=== PATIENT | female | born 1990 ===

== ENCOUNTER 2020-07-14 09:10 | Outpatient (REF) | payer MEDICAID, SELFPAY ==
[2020-07-15 09:55] LABS: CT PCR NOT DETECTED (Not Detect.); NG PCR NOT DETECTED (Not Detect.)
[2020-07-15 12:33] LABS: BV Int Neg Control Negative (Negative); BV Int Pos Control Positive (Positive)
== END 2020-07-14 09:11 | disposition home or self-care (01) ==
LOC: CF 09:10
PROVIDERS: Visit Provider Advanced Practice Midwife
DX: N89.8 Other specified noninflammatory disorders of vagina (principal)
CPT/HCPCS: 36415; 87480; 87491; 87510; 87591; 87660; 99213

== ENCOUNTER 2021-09-21 17:27 | Emergency (ER) | payer MEDICAID, SELFPAY ==
[2021-09-21 18:26] VITALS: PULSE 71; RESP 16; TEMP 36.6; O2SAT 100; BMI 25.4
[2021-09-21 20:01] LABS: COVID-19 Test Negative (Negative); IDNOW Serial# 9DD0AD1C
== END 2021-09-21 21:23 | disposition left against medical advice (07) ==
PROVIDERS: Emergency Provider Emergency Medicine; PCP Nurse Practitioner Primary Care
DX: R51.9 Headache, unspecified (principal); R42 Dizziness and giddiness; M79.10 Myalgia, unspecified site; Z20.822 Contact with and (suspected) exposure to COVID-19
CPT/HCPCS: 36415; 87635; 99282; 99283

== ENCOUNTER → 2021-10-04 09:35 | Outpatient (BNVA) | payer MEDICAID, SELFPAY | PROVIDERS: Visit Provider Advanced Practice Midwife | DX: Z30.09 Encounter for other general counseling and advice on contraception (principal); N89.8 Other specified noninflammatory disorders of vagina | CPT/HCPCS: 99202 ==

== ENCOUNTER 2021-11-07 11:00 | Outpatient (REF) | payer MEDICAID, SELFPAY ==
[2021-11-07 15:50] LABS: CT PCR NOT DETECTED (Not Detect.); NG PCR NOT DETECTED (Not Detect.)
[2021-11-08 10:01] LABS: BV Int Neg Control Negative (Negative); BV Int Pos Control Positive (Positive)
[2021-11-09 21:51] LABS: HPV mRNA E6/E7 rflx Not Detected (Not Detected)
== END 2021-11-07 11:01 | disposition home or self-care (01) ==
LOC: HO.LAB 11:00
PROVIDERS: Visit Provider Advanced Practice Midwife
DX: Z12.4 Encounter for screening for malignant neoplasm of cervix (principal); Z11.51 Encounter for screening for human papillomavirus (HPV); Z87.42 Personal history of other diseases of the female genital tract
CPT/HCPCS: 87480; 87491; 87510; 87591; 87624; 87660; 88142

== ENCOUNTER 2022-07-12 14:31 | Outpatient (REF) | payer MEDICAID, SELFPAY ==
--- NOTE | ~2022-07-12 | US_ITS ---
EXAMINATION: US PELVIS, LIMITED CLINICAL INFORMATION: Epidermal cyst. COMPARISON: None TECHNIQUE: Using a linear transducer with grayscale and color modalities, ultrasound examination was performed of the left lower quadrant anterior pelvic wall. FINDINGS: The cutaneous, subcutaneous, muscular and fascial planes are unremarkable. Corresponding with the palpable finding in the left lower quadrant, a 1.4 x 0.4 x 1.2 cm hypoechoic cyst is seen, with mild associated peripheral Doppler flow. This abuts the deep dermal surface. There is no obvious draining sinus tract. No mass or lymphadenopathy is seen. There is no foreign body noted. US/US pelvic limited IMPRESSION: A 1.3 cm low-attenuation cyst is identified in the anterior pelvic wall, corresponding with the palpable finding. This likely represents an epidermal inclusion cyst. The exact etiology is indeterminate. Recommend management on a clinical basis.
== END 2022-07-12 14:32 | disposition home or self-care (01) ==
LOC: HO.US 14:31
PROVIDERS: Visit Provider Emergency Medicine
DX: L72.0 Epidermal cyst (principal)
CPT/HCPCS: 76857

== ENCOUNTER → 2022-08-05 14:12 | Outpatient (BNVA) | payer MEDICAID, SELFPAY | PROVIDERS: PCP Nurse Practitioner Primary Care; Visit Provider Surgery | DX: L72.3 Sebaceous cyst (principal) | CPT/HCPCS: 99202 ==

== ENCOUNTER 2022-08-23 12:44 | Outpatient (REF) | payer MEDICAID, SELFPAY | END 2022-08-23 12:45 | disposition home or self-care (01) | LOC: HO.LNP 12:44 | PROVIDERS: PCP Nurse Practitioner Primary Care; Visit Provider Surgery | DX: L72.3 Sebaceous cyst (principal) | CPT/HCPCS: 11401; 88304; 88305; 88341; 88342; 99212 ==

== ENCOUNTER → 2022-09-04 13:40 | Outpatient (BNVA) | payer MEDICAID, SELFPAY | PROVIDERS: PCP Nurse Practitioner Primary Care; Visit Provider Surgery | DX: Z48.817 Encounter for surgical aftercare following surgery on the skin and subcutaneous tissue (principal); Z87.2 Personal history of diseases of the skin and subcutaneous tissue | CPT/HCPCS: 99212 ==

== ENCOUNTER 2023-06-05 16:04 | Outpatient (REF) | payer MEDICAID, SELFPAY ==
[2023-06-06 04:18] LABS: CT PCR NOT DETECTED (Not Detect.); NG PCR NOT DETECTED (Not Detect.)
[2023-06-06 15:44] LABS: BV Int Neg Control Negative (Negative); BV Int Pos Control Positive (Positive)
== END 2023-06-05 16:05 | disposition home or self-care (01) ==
LOC: HO.HHCLNP 16:04
PROVIDERS: Visit Provider Advanced Practice Midwife
DX: N93.9 Abnormal uterine and vaginal bleeding, unspecified (principal); Z11.3 Encounter for screening for infections with a predominantly sexual mode of transmission
CPT/HCPCS: 0353U; 87480; 87510; 87660

== ENCOUNTER 2023-09-05 08:07 | Emergency (ER) | payer MEDICAID, SELFPAY ==
[2023-09-05 08:12] VITALS: BP 132/84; PULSE 57; RESP 20; TEMP 36.8; O2SAT 100; BMI 20.7
--- NOTE | 2023-09-05 08:18 | ED.DENTAL ---
HPI - Dental/Oral General Chief complaint: Dental/Oral Stated complaint: R side facial pain Time Seen by Provider: 09/05/23 08:10 Source: patient and old records reviewed Mode of arrival: ambulatory Limitations: no limitations History of Present Illness HPI Narrative: 33 yo female with no recent dental workup but does have a dentist started with atraumatic R sided dental pain hurt all night no facial swelling/resp or swallowing difficulties MD Complaint: tooth pain Location: Tooth # (3/4) Onset (ago): day(s) (1) Duration: constant Severity: severe Relieving factors: nothing Exacerbating factors: chewing Context: history of dental caries Treatment prior to arrival: topical analgesic Related Data Home Medications Medication Instructions Recorded Confirmed etonogestrel 68 mg subdermal subdermal 07/14/20 09/04/22 implant (Nexplanon) Previous Rx's Medication Instructions Recorded amoxicillin 875 mg-potassium 1 tab PO BID #13 tabs 09/05/23 clavulanate 125 mg tablet hydrocodone 5 mg-acetaminophen 325 1 tab PO Q6H PRN pain #10 tabs 09/05/23 mg tablet Allergies Allergy/AdvReac Type Severity Reaction Status Date / Time No Known Allergies Allergy Verified 09/04/22 13:41 [No Known Allergies*] Review of Systems Review of Systems: Constitutional : No Fever, No Chills ENT/Mouth : No swallowing difficulty, no change in voice, positive dental pain, positive jaw pain, no facial swelling Eyes: No Eye Pain, No Swelling Cardiovascular : No Chest Pain, No SOB Respiratory : No Cough, No Sputum Gastrointestinal : No Nausea, No Vomiting, No Diarrhea Genitourinary : No Dysuria Musculoskeletal : No Myalgias Skin : No rash Neuro : No Weakness, No Numbness, No Headache PMFSH Past Medical History Attestation statement: The following information was validated with the patient. Medical History Herpes genitalia Surgical History No history of previous surgery Family History Family History Father Diabetes mellitus Heart attack Maternal Grandmother Parkinson disease Social History Alcohol intake: current Alcohol intake frequency: holidays/special occasions only Patient Tobacco Use Status: Never used Tobacco Gender identity: Female Physical Exam Vital Signs: Vital Signs: Last Vital Signs Temp 98.3 F 09/05/23 08:12 Pulse 57 09/05/23 08:12 Resp 20 09/05/23 08:12 BP 132/84 09/05/23 08:12 Pulse Ox 100 09/05/23 08:12 O2 Del Method Room Air 09/05/23 08:12 BMI result Body Mass Index 20.7 Appearance: Alert. Oriented X3. No acute distress. Eyes: Pupils equal, round and reactive to light. ENT: Pharynx normal. ttp along R upper teeth with caries 3/4 no gum swelling no abscess no trismus, normal voice, tolerating secretions Neck: Normal inspection. Neck supple. CVS: Normal heart rate and rhythm. Pulses normal. Respiratory: No respiratory distress. Breath sounds normal. Abdomen: Soft and non-tender. Skin: Skin warm and dry. Normal skin color. Extremities: No lower extremity edema. Neuro: Oriented X 3. No motor deficit. No sensory deficit. Medical Decision Making Medical Decision Making MDM Narrative: 33 yo female with dental pain and dental caries no trismus, normal ROM of neck, no dental abscess - at this time will start on short course of pain medications and antibiotics, refer to dentist Differential Diagnosis Differential Diagnoses: The differential diagnosis associated with the presentation includes toothache, dental caries, exposed nerve root Independent Historian Clinical information obtained from an independent historian. History obtained from or confirmed by: Parent External Record Review External record reviewed: Office record Prescription Management I considered prescription management with: Pain Medication and Antibiotic Discharge Plan Discharge Clinical Impression: Toothache, Dental caries Patient Disposition: Home, Self-Care Instructions: Toothache (ED) Additional Instructions: return for pain, swelling, fevers, inability to eat or drink or any other concerns On amoxicillin-clavulanate, softer bowel movements are to be expected. Call your provider if you move your bowels more than 4 times a day, your bowel movements are almost all liquid, or you get a rash.? Take a probiotic while you are on antibiotics and for at least one week after the antibiotics are finished - this can help protect your GI system from diarrhea and other issues. You can get probiotics by drinking kefir, eating yogurt or culturelle or another pill form of probiotic. Do not take it at the same time as you take the antibiotic.?More than 6 to 8 loose stools a day is not normal seek care if this happens Prescriptions: New amoxicillin-pot clavulanate 875-125 mg tablet 1 tab PO BID Qty: 13 0RF hydrocodone-acetaminophen 5-325 mg tablet 1 tab PO Q6H PRN (Reason: pain) Qty: 10 0RF Rx Instructions: partial fill okay; Partial Fill upon patient request. No Action Nexplanon 68 mg implant subdermal lidocaine-epinephrine 1 %-1:100,000 solution 30 ml Infiltration ONCE Qty: 30 0RF
[2023-09-05 08:32] VITALS: BP 120/85; PULSE 70; RESP 20; TEMP 36.9; O2SAT 100
[2023-09-05] MEDS: Amoxicillin/Potassium Clav 875 MG TABLET PO (08:35)
[2023-09-05] MEDS: HYDROcodone Bit/Acetam 5/325 TABLET 1 TAB PO (08:35)
== END 2023-09-05 08:41 | disposition home or self-care (01) ==
PROVIDERS: Emergency Provider Emergency Medicine; PCP Nurse Practitioner Primary Care
DX: K02.9 Dental caries, unspecified (principal); Z79.899 Other long term (current) drug therapy
CPT/HCPCS: 99283

== ENCOUNTER 2023-10-31 15:53 | Outpatient (REF) | payer MEDICAID, SELFPAY ==
[2023-11-01 19:19] LABS: Trichomonas vaginalis RNA NOT DETECTED (NOT DETECTED)
[2023-11-04 14:58] LABS: N. gonorrhoeae RNA TMA, Throat NOT DETECTED
== END 2023-10-31 15:54 | disposition home or self-care (01) ==
LOC: HO.HHCLNP 15:53
PROVIDERS: Visit Provider Nurse Practitioner Primary Care
DX: Z11.3 Encounter for screening for infections with a predominantly sexual mode of transmission (principal)
CPT/HCPCS: 36415; 87591; 87661

== ENCOUNTER 2023-12-11 11:00 | Outpatient (REF) | payer MEDICAID, SELFPAY ==
[2023-12-11 11:34] LABS: MANUAL DIFF FLAG NO
[2023-12-11 11:37] LABS: Basophils Absolute Auto 0.1 X10*3/uL (0.0-0.2); Basophils Percent Auto 0.8 % (0-2); Eosinophils Absolute Auto 0.1 X10*3/uL (0.0-0.4); Eosinophils Percent Auto 1.9 % (0-4); Hematocrit 38.4 % (37.0-47.0); Hemoglobin 12.9 g/dl (12.0-16.0); Imm Gran Abs Auto 0.01 X10*3/uL (0.00-0.03); Imm Gran Pct Auto 0.2 % (0.0-0.4); Lymphocytes Absolute Auto 1.3 X10*3/uL (1.2-4.9); Lymphocytes Percent Auto 20.1 % (20-40); Mean Corpuscular HGB Conc 33.6 g/dl (31.0-35.0); Mean Corpuscular Hemoglobin 30.4 pg (27.0-33.0); Mean Corpuscular Volume 90.4 fL (80.0-98.0); Mean Platelet Volume 10.7 fL (9.4-12.3); Monocytes Absolute Auto 0.4 X10*3/uL (0.1-1.2); Monocytes Percent Auto 6.8 % (2-11); Neutrophils Absolute Auto 4.5 x10*3/uL (2.0-8.3); Neutrophils Percent Auto 70.2 % (45-73); Platelet Count 207 X10*3/uL (160-400); Red Blood Count 4.25 X10*6/uL (4.20-5.50); Red Cell Distribution Width 12.7 % (11.0-16.0); White Blood Count 6.4 X10*3/uL (4.8-10.8)
[2023-12-11 12:13] LABS: TSH reflex Free T4 2.66 uIU/mL (0.32-4.0)
== END 2023-12-11 11:01 | disposition home or self-care (01) ==
LOC: HO.HHCL 11:00
PROVIDERS: Visit Provider Family Medicine
DX: N64.4 Mastodynia (principal)
CPT/HCPCS: 36415; 84443; 85025

== ENCOUNTER → 2024-01-22 14:00 | Outpatient (BNV) | payer MEDICAID, SELFPAY | PROVIDERS: PCP Nurse Practitioner Primary Care; Visit Provider Radiology Diagnostic Radiology | DX: N64.4 Mastodynia (principal) | CPT/HCPCS: 76642; 77062; 77066 ==

== ENCOUNTER 2024-01-22 14:01 | Outpatient (REF) | payer MEDICAID, SELFPAY ==
--- NOTE | ~2024-01-22 | MM_ITS ---
EXAMINATION: MM DIAGNOSTIC DIGITAL BREAST TOMOSYNTHESIS, BILATERAL US BREAST LIMITED, BILATERAL CLINICAL INFORMATION: 33-year-old female complaining of bilateral breast pain lower inner quadrants, lower outer quadrants, and upper outer quadrants. No additional complaints. No palpable abnormalities. COMPARISON: Mammography: None. Baseline exam. TECHNIQUE: Digital breast tomosynthesis is performed in both the craniocaudal and mediolateral oblique views along with computer-aided detection (CAD). Synthesized 2D images are generated from the tomosynthesis. In addition, full-field left and right 3-D ML views were obtained. FINDINGS: The breasts are heterogeneously dense, which may obscure small masses (ACR BI-RADS breast composition Category c). There are no suspicious masses, suspicious grouped calcifications, or areas of architectural distortion in either breast. The parenchymal pattern is stable from prior exams. No skin or axillary abnormalities. No mammographic correlates identified to the complaint of breast pain in the bilateral lower inner, lower outer, upper outer quadrants. ULTRASOUND: CLINICAL INFORMATION: Bilateral breast pain lower inner quadrants, lower outer quadrants, and upper outer quadrants. COMPARISON: None TECHNIQUE: Targeted sonographic evaluation was performed using a high frequency linear transducer. Right breast was scanned from the 3-12 o'clock axis to include the regions of breast pain. The left breast was scanned from the 12-9 o'clock axis to include the regions of breast pain. Selected archived documentation. FINDINGS: RIGHT BREAST: There is dense fibroglandular tissue. No suspicious mass is seen. There is no pathologic acoustic shadowing. There is no cystic abnormality. There is no sonographic correlate to the regions of breast pain. LEFT BREAST: There is dense fibroglandular tissue. No suspicious mass is seen. There is no pathologic acoustic shadowing. There is no cystic abnormality. There is no sonographic correlate to the regions of breast pain. MM/MM tomosynthesis diagnostic BI IMPRESSION: -No mammographic evidence of malignancy. -No sonographic or mammographic abnormalities identified in the regions of bilateral breast pain in the lower inner, lower outer, and upper outer quadrants. Recommend clinical management of these symptoms. -Otherwise, recommend the patient resume routine annual screening mammography at age 41. OVERALL ASSESSMENT: Mammography: BI-RADS 1 - Negative Ultrasound: BI-RADS 1 - Negative RECOMMENDATION: 1. Patient should be managed based on the clinical impression. 2. Otherwise, routine annual screening mammography at age 41. This patient's information was entered into a reminder system with a target due date for their next mammogram.
== END 2024-01-22 14:02 | disposition home or self-care (01) ==
LOC: HO.MAMMO 14:01
PROVIDERS: PCP Nurse Practitioner Primary Care; Visit Provider Nurse Practitioner Primary Care
DX: N64.4 Mastodynia (principal)
CPT/HCPCS: 76642; 77062; 77066

== ENCOUNTER 2024-02-12 10:55 | Outpatient (REF) | payer MEDICAID, SELFPAY ==
--- NOTE | ~2024-02-12 | XR_ITS ---
EXAMINATION: XR HIP, RIGHT CLINICAL INFORMATION: Right hip pain COMPARISON: None available. TECHNIQUE: Frontal and frog lateral views of the right hip. FINDINGS: No fracture. Alignment is anatomic. Hip joint space is maintained. Soft tissues are unremarkable. An IUD is noted in the pelvis. XR/XR hip RT min 2V IMPRESSION: Unremarkable plain radiographs of the right hip.
--- NOTE | ~2024-02-12 | XR_ITS ---
EXAMINATION: XR HIP, LEFT CLINICAL INFORMATION: Left hip pain COMPARISON: None available. TECHNIQUE: Frontal and frog lateral views of the left hip. FINDINGS: No fracture. Alignment is anatomic. Hip joint space is maintained. Soft tissues are unremarkable. An IUD is noted. XR/XR hip LT min 2V IMPRESSION: Normal left hip.
== END 2024-02-12 10:56 | disposition home or self-care (01) ==
LOC: HO.HHCX 10:55
PROVIDERS: Visit Provider Nurse Practitioner Primary Care
DX: M25.551 Pain in right hip (principal); M25.552 Pain in left hip
CPT/HCPCS: 73502

== ENCOUNTER 2024-05-15 17:20 | Emergency (ER) | payer MEDICAID, SELFPAY ==
--- NOTE | ~2024-05-15 | XR_ITS ---
EXAMINATION: XR TIBIA AND FIBULA, LEFT CLINICAL INFORMATION: Pain, injury COMPARISON: None available. TECHNIQUE: AP and lateral views of the left tibia and fibula were obtained. FINDINGS: No acute fracture involving the left tibia and fibula. Alignment at the left knee and ankle joint are maintained. Tiny well-corticated osseous fragment adjacent to the posterior facet of the calcaneus, may represent sequelae of prior trauma. No acute soft tissue abnormality. XR/XR tibia fibula LT 2V IMPRESSION: No acute fracture involving the left tibia and fibula.
[2024-05-15 17:22] VITALS: BP 113/72; PULSE 72; RESP 18; TEMP 36.9; O2SAT 100; BMI 24.4
--- NOTE | 2024-05-15 17:25 | ED_ITS ---
HPI - General Adult General Chief complaint: Extremity Injury, Lower Stated complaint: left calf inj Time Seen by Provider: 05/15/24 17:27 Source: patient Mode of arrival: ambulatory Limitations: no limitations History of Present Illness ED Provider: Maryuri GUTIÉRREZ HPI narrative: This is a 34-year-old female presenting with left calf pain, patient reports she was running chasing a child, slipped on rocks, hyperextended her left leg and immediately felt a snap in the back of her leg around her calf region. Patient reports that the pain is severe 10/10, worse with weight-bearing and ambulation better at rest. She reports a throbbing constant pain. This happened a few hours ago. Patient reports this is terrible pain. She comes into the room in a wheelchair as she feels like she is unable to ambulate. Denies associated numbness or tingling. No previous issues to this lower extremity. Denies fevers, chills, chest pain, shortness breath, any other injuries sustained with slip and fall. No head strike no loss of consciousness. Not on blood thinners. Related Data Home Medications ?Medication ?Instructions ?Recorded ?Confirmed etonogestrel 68 mg subdermal subdermal 07/14/20 09/04/22 implant (Nexplanon) Previous Rx's ?Medication ?Instructions ?Recorded amoxicillin 875 mg-potassium 1 tab PO BID #13 tabs 09/05/23 clavulanate 125 mg tablet hydrocodone 5 mg-acetaminophen 325 1 tab PO Q6H PRN pain #10 tabs 09/05/23 mg tablet ketorolac 10 mg tablet 10 mg PO TID PRN pain 5 days #15 05/15/24 tabs morphine 15 mg immediate release 15 mg PO Q6H PRN pain 5 days #10 05/15/24 tablet tabs Allergies Allergy/AdvReac Type Severity Reaction Status Date / Time No Known Allergies Allergy Verified 05/15/24 17:24 [No Known Allergies*] Review of Systems Review of Systems: Yes all other systems are reviewed and are negative PMFSH Past Medical History Attestation statement: The following information was validated with the patient. Source: old records reviewed and nursing notes reviewed Medical History Herpes genitalia Surgical History No history of previous surgery Family History Family History Father Diabetes mellitus Heart attack Maternal Grandmother Parkinson disease Social History Social History Alcohol intake: current Alcohol intake frequency: holidays/special occasions only Patient Tobacco Use Status: Never used Tobacco Advance Directives: No Advance Directives Information Provided: No Do you have a plan to hurt others: No Plan Gender identity: Female Physical Exam ED Vital Signs: Vital Signs - 24 hr 05/15/24 17:22 05/15/24 19:21 05/15/24 19:31 Temperature 98.5 F 97.2 F 97.2 F Pulse Rate 72 72 72 Respiratory Rate 18 16 16 Blood Pressure 113/72 129/76 129/76 Pulse Oximetry 100 97 97 Oxygen Delivery Method Room Air Room Air Room Air BMI result Body Mass Index 24.4 vss Appearance: Alert.? Oriented X3.? No acute distress.? Head: Normocephalic, atraumatic, no step-offs or deformities Eyes: Pupils equal, round and reactive to light.? CVS: Pulses normal.? Respiratory: No respiratory distress.? Abdomen: Soft and nontender.? Skin: Skin warm and dry.? Normal skin color.? Normal skin turgor.? Extremities: No lower extremity edema.? No calf ttp. 5/5 strength to bilateral upper extremities and 5/5 strength to right lower extremity difficult to assess strength to left lower extremity secondary to pain and calf. There is tenderness to palpation to left calf without overlying skin changes no step-offs or deformities. No ecchymosis. No footdrop bilaterally. Normal sensation distally bilaterally. 2+ dorsalis pedis anterior tibialis and posterior tibialis pulses equal bilateral.+ thompsons test on left Back: No midline tenderness, no C-spine tenderness, full range of motion, no CVA tenderness bilaterally Neuro: Oriented X 3.? No motor deficit.? No sensory deficit. CN 2-12 intact Course Course Course Narrative: RME performed by Gail Duong PA-C. Patient is a 34 year old assigned female at presenting to the emergency department with left calf pain. Patient states that she slipped on rocks and hyperextended her left lower leg and felt a snap in the back of her leg and is now continuing to have left calf pain. Detailed physical exam and review of systems are deferred to the consumer analyst. Imaging ordered. Patient placed back in the waiting room pending room availability and results. Reevaluation(s) Reevaluation #1: Sign out to Gail GUTIÉRREZ Time: 18:16 Medications Administered Discontinued Medications Generic Name Dose Route Start Last Admin Trade Name Marco A PRN Reason Stop Dose Admin Ketorolac Tromethamine 30 mg 05/15/24 17:40 05/15/24 17:50 Ketorolac Tromethamine 30 Mg/Ml Vial IM 05/15/24 17:41 30 mg ONCE ONE Administration Lorazepam 1 mg 05/15/24 17:47 05/15/24 17:54 Lorazepam 1 Mg Tablet PO 05/15/24 17:48 1 mg ONCE ONE Administration Morphine Sulfate 15 mg 05/15/24 17:40 05/15/24 17:50 Morphine Sulfate Immed Release 15 Mg Tablet PO 05/15/24 17:41 15 mg ONCE ONE Administration Procedures Orthopedic Splinting/Casting Injury #1: Side: left Lower Extremity Injury Location: lower leg Lower Extremity Immobilizer: posterior splint Other Orthopedic Equipment: crutches Additional Comments: Patient's PMS was intact prior to and after splint placement Medical Decision Making Medical Decision Making [facility] Narrative: [id number] 34-year-old female presents with left calf injury reporting for the past few hours. Physical exam with No lower extremity edema.? No calf ttp. 5/5 strength to bilateral upper extremities and 5/5 strength to right lower extremity difficult to assess strength to left lower extremity secondary to pain and calf. There is tenderness to palpation to left calf without overlying skin changes no step-offs or deformities. No ecchymosis. No footdrop bilaterally. Normal sensation distally bilaterally. 2+ dorsalis pedis anterior tibialis and posterior tibialis pulses equal bilateral. + thompsons test on left History and physical exam concerning for Achilles tendon injury versus gastrocnemius injury. Other differentials include strain or sprain. Unlikely fracture, dislocation, arterial or venous occlusion. No signs of neurovascular compromise or acute threat to limb. No signs of traumatic injury to head, neck, chest, abdomen or pelvis. Plan x-rays, ultrasound. Differential Diagnosis Differential Diagnoses: The differential diagnosis associated with the presentation includes History and physical exam concerning for Achilles tendon injury versus gastrocnemius injury. Other differentials include strain or sprain. Unlikely fracture, dislocation, arterial or venous occlusion. No signs of neurovascular compromise or acute threat to limb. No signs of traumatic injury to head, neck, chest, abdomen or pelvis. Admission/Observation Consideration of admission/observation: Escalation of care including admission/observation considered Independent Interpretation I performed an independent interpretation of an: Plain X-Ray and Ultrasound Radiology Impression Discussion of test interpretation with radiology: I have reviewed the radiologist's reading. External Record Review External record reviewed: Office record, Outpatient record, Prior outpatient labs and Prior outpatient radiology Prescription Management I considered prescription management with: Pain Medication (toradol ) Critical Care Time Critical Care Time Critical Care Time: Yes Total Critical Care Time: 35 Attestation: I attest to this time spent taking care of the patient, obtaining history, physical, reviewing labs, imaging, speaking to my attending, specialist or hospitalist. Discharge Plan Discharge Clinical Impression: Achilles rupture Patient Disposition: Home, Self-Care Instructions: Crutch Instructions (ED), Achilles Tendon Rupture (ED), Achilles Tendinitis (ED), R.I.C.E. Treatment (ED), Tendon Rupture (ED) Additional Instructions: Take your medications as prescribed. If you were prescribed antibiotics today, it is important that you take your medication to their entirety, do not skip any doses, do not finish them early. Follow-up with your primary care provider this week. Return to the emergency department with new or worsening symptoms. Such as fevers, chills, chest pain, shortness of breath, nausea, vomiting, dizziness, headache, vision changes, lethargy In case of emergency call 911 Please do not get your splint wet. Use your crutches as indicated. Return with new or worsening symptoms. Such as numbness, tingling, bruising, discoloration of skin. You need to follow-up with the orthopedic group this week. Toradol has been sent to your pharmacy, you tolerated this well in the department. Please take this as prescribed do not take this with ibuprofen, or other NSAIDs, do not mix this with alcohol. Side effects of this medication including increased risk for bleeding and possible kidney injury. A narcotic has been sent to your pharmacy please take this as prescribed. Do not take more than the prescribed dose. Narcotic medications can cause addiction. Please do not mix them with alcohol. Do not take them while driving or operating machinery. Do not take them with any other narcotics. Do not share them with friends or family. They can cause constipation. Take them only for severe pain. For [id number] pain you can take ketorolac or Toradol as prescribed. For moderate to severe pain you can take morphine. Please read over safe narcotic handling above. Prescriptions: New ketorolac 10 mg tablet 10 mg PO TID PRN (Reason: pain) 5 Days Qty: 15 0RF morphine 15 mg tablet 15 mg PO Q6H PRN (Reason: pain) 5 Days Qty: 10 0RF Rx Instructions: Partial Fill upon patient request. No Action amoxicillin-pot clavulanate 875-125 mg tablet 1 tab PO BID Qty: 13 0RF hydrocodone-acetaminophen 5-325 mg tablet 1 tab PO Q6H PRN (Reason: pain) Qty: 10 0RF Rx Instructions: partial fill okay; Partial Fill upon patient request. Nexplanon 68 mg implant subdermal lidocaine-epinephrine 1 %-1:100,000 solution 30 ml Infiltration ONCE Qty: 30 0RF Ref[place]: [facility] [place]Provider Group] - 1 day Temitope Davis NP [Primary Care Provider] - 2 days Stand Alone Forms: Work/School Release Interventions: ED Discharge Assessment Last Done: 05/15/24 19:31 Discharge Date/Time: 05/15/24 19:35 Print Language: Arabic
[2024-05-15] MEDS: Ketorolac Tromethamine 30 MG/ML VIAL IM (17:50)
[2024-05-15] MEDS: Morphine Sulfate Immed Release 15 MG TABLET PO (17:50)
[2024-05-15] MEDS: LORazepam 1 MG TABLET PO (17:54)
[2024-05-15 19:21] VITALS: BP 129/76; PULSE 72; RESP 16; TEMP 36.2; O2SAT 97
[2024-05-15 19:31] VITALS: BP 129/76; PULSE 72; RESP 16; TEMP 36.2; O2SAT 97
== END 2024-05-15 19:35 | disposition home or self-care (01) ==
PROVIDERS: Emergency Provider Emergency Medicine; PCP Nurse Practitioner Primary Care
DX: S86.012A Strain of left Achilles tendon, initial encounter (principal); X50.1XXA Overexertion from prolonged static or awkward postures, initial encounter; Y93.02 Activity, running; Y92.9 Unspecified place or not applicable; Y99.9 Unspecified external cause status
CPT/HCPCS: 73590; 76882; 96372; 99283; 99284; J1885

== ENCOUNTER 2024-05-17 12:24 | Outpatient (AMB) | payer MEDICAID, SELFPAY ==
--- NOTE | 2024-05-17 12:29 | A.OFFVIS_ITS ---
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 Patient reports she was running after a 12 year old boy and she felt a popping sound in her left leg. She states that her pain is better but when sudden movements she feels sharp pain. 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 The patient was seen in the ED on 05/16/24 status post running after a child when she slipped on a rock and hyperextended her left lower extremity. She reported feeling a snap on the back of her left in the calf region. X-rays were obtained. The patient was placed in a posterior splint and supplied with crutches. She was prescribed ketorolac 10 mg PO TID PRN and morphine 15 mg PO Q6H PRN.? ? While in the office today, the patient reports she was running after a 12-year-old boy when she felt a pop in her left lower extremity. She states overall the pain is better, but she has a sharp pain with sudden movements. ? [facility] Medical History Herpes genitalia Surgical History No history of previous surgery Family History Father Diabetes mellitus Heart attack Maternal Grandmother Parkinson disease Social History (Updated 05/17/24 @ 12:35 by Omi Mreino) Alcohol intake: current Alcohol intake frequency: holidays/special occasions only Patient Tobacco Use Status: Never used Tobacco Current occupational status: employed Current occupation: [employer] Gender identity: Female Female Reproductive History Menstrual Age of Menarche: 14 Review of Systems Const All systems reviewed & are unremarkable except as noted in HPI and below Physical Exam Vital Signs: BMI result Body Mass Index 24.4 Const General: cooperative and no acute distress Orientation/consciousness: patient oriented x3 Resp Effort & Inspection: normal respiratory effort and able to speak in complete sentences Cardio Peripheral pulses: Peripheral pulses 2+ throughout Skin General skin exam: no rashes or lesions noted Neuro General: patient oriented x3 Extrem Other: Left lower extremity: palpable Achilles tendon with no defect. Exquisite tenderness to palpation of the gastroc muscle belly. Able to dorsiflex and plantarflex. Able to move all digits. Negative Diaz?s. Sensation intact. Pedal pulse intact. ? Assessment & Plan Assessment & Plan (1) Gastrocnemius tear: Code(s): S86.119A - Strain of other muscle(s) and tendon(s) of posterior muscle group at lower leg level, unspecified leg, initial encounter Category: Medical Qualifiers: Encounter type: initial encounter Laterality: left Qualified Code(s): S86.112A - Strain of other muscle(s) and tendon(s) of posterior muscle group at lower leg level, left leg, initial encounter Plan Ms. Gupta is a 34-year-old female who presents in the office today, as a new patient, for an evaluation of left lower extremity pain. The patient was seen in the ED on 05/16/24 status post running after a child when she slipped on a rock and hyperextended her left lower extremity. She reported feeling a snap on the back of her left in the calf region. X-rays were obtained. The patient was placed in a posterior splint and supplied with crutches. She was prescribed ketorolac 10 mg PO TID PRN and morphine 15 mg PO Q6H PRN.? ? While in the office today, the patient reports she was running after a 12-year-old boy when she felt a pop in her left lower extremity. She states overall the pain is better, but she has a sharp pain with sudden movements.? ? Dr. Marsh was available to see the patient will me and a collaborative treatment plan was made. The patient was placed in a tall walking boot, off the shelf. She may weight bear as tolerated. She will be referred to physical anthropologist apy to begin in two weeks, however, she may work on gentle ROM until she begins PT. I recommend for her to ice and rest as much as possible. She is able to take an OTC anti-inflammatory. She was given a work note stating she may do sedentary work only. Follow-up will be in four to six weeks, or sooner if needed. ? ? X-rays of the left tibia/fibula, obtained on 05/15/24, revealed: No acute fracture involving the left tibia and fibula.? Orders: Orders PT Evaluation and Treatment Today S86.119A - Strain of other muscle(s) and tendon(s) of posterior muscle group at lower leg level, unspecified leg, initial encounter Patient Instructions: Scribed by Gilma Noriega medical appointment clerk, for Esperanza Chavarria PA-C on 05/17/2024 at 12:26 pm, EST.? Coding Level of Care Code New Pt Level 4 (44795) Diagnoses Rupture of left gastrocnemius tendon, initial encounter S86.112A Encounter type: initial encounter Laterality: left
[2024-05-17 12:34] VITALS: BMI 24.4
== END 2024-05-17 13:24 | disposition home or self-care (01) ==
PROVIDERS: PCP Nurse Practitioner Primary Care; Visit Provider Physician Assistant
DX: S86.112A Strain of other muscle(s) and tendon(s) of posterior muscle group at lower leg level, left leg, initial encounter (principal)
CPT/HCPCS: 99204

== ENCOUNTER → 2024-05-17 12:24 | Outpatient (BNVA) | payer MEDICAID, SELFPAY | PROVIDERS: PCP Nurse Practitioner Primary Care; Visit Provider Physician Assistant | DX: S86.112A Strain of other muscle(s) and tendon(s) of posterior muscle group at lower leg level, left leg, initial encounter (principal); X58.XXXA Exposure to other specified factors, initial encounter; Y93.02 Activity, running; Y92.9 Unspecified place or not applicable; Y99.9 Unspecified external cause status | CPT/HCPCS: 99212 ==

== ENCOUNTER 2024-06-24 10:02 | Outpatient (AMB) | payer MEDICAID, SELFPAY ==
--- NOTE | 2024-06-24 10:10 | MHC.OFFVIS ---
Intake Visit Reasons: OV- lt achilles tend. rupture, DOI 05/15/24 Intake Note: Humera is a 34 year old female who presents today with her son for a for a follow up of her left ankle injury, DOI 05/15/24. Patient reports she is doing better and she removed the boot , she will wear it if shes on uneven ground. Allergies No Known Allergies [No Known Allergies*] Allergy (Verified 06/24/24 10:11) HPI HPI OV- lt achilles tend. rupture, DOI 05/15/24: Details: 34-year-old female who presents in the office today for a follow-up of a left lower extremity gastrocnemius tear, which occurred on 05/16/24 status post running after a child when she slipped on a rock and hyperextended her left lower extremity. I last saw the patient on 05/15/24 when she was placed in a tall walking boot to weight bear as tolerated. She was referred to PT to work on gentle ROM. She was given a work note stating she may do sedentary work only.? ? While in the office today, the patient reports she is doing better and has removed the boot. She only reports wearing it when on uneven ground. ? [facility] Medical History Herpes genitalia Surgical History No history of previous surgery Family History Father Diabetes mellitus Heart attack Maternal Grandmother Parkinson disease Social History (Updated 05/17/24 @ 12:35 by Omi Merino) Alcohol intake: current Alcohol intake frequency: holidays/special occasions only Patient Tobacco Use Status: Never used Tobacco Current occupational status: employed Current occupation: [employer] Gender identity: Female Female Reproductive History Menstrual Age of Menarche: 14 Review of Systems Const All systems reviewed & are unremarkable except as noted in HPI and below Physical Exam Const General: cooperative, healthy appearing and no acute distress Resp Effort & Inspection: normal respiratory effort and able to speak in complete sentences Cardio Rate: regular rate Peripheral pulses: Peripheral pulses 2+ throughout GI Palpation (GI): Soft to palpation Skin Lesions: no lesions Rashes: no rashes Extrem Other: Left lower extremity: Palpable Achilles tendon with no defect. No tenderness to palpation of the gastroc muscle belly. Able to dorsiflex and plantarflex. Able to move all digits. Negative Diaz?s. Sensation intact. Pedal pulse intact. ? Assessment & Plan Assessment & Plan (1) Gastrocnemius tear: Code(s): S86.119A - Strain of other muscle(s) and tendon(s) of posterior muscle group at lower leg level, unspecified leg, initial encounter Category: Medical Qualifiers: Encounter type: initial encounter Laterality: left Qualified Code(s): S86.112A - Strain of other muscle(s) and tendon(s) of posterior muscle group at lower leg level, left leg, initial encounter Plan Ms. Gupta is a 34-year-old female who presents in the office today for a follow-up of a left lower extremity gastrocnemius tear, which occurred on 05/16/24 status post running after a child when she slipped on a rock and hyperextended her left lower extremity. I last saw the patient on 05/15/24 when she was placed in a tall walking boot to weight bear as tolerated. She was referred to PT to work on gentle ROM. She was given a work note stating she may do sedentary work only.? ? While in the office today, the patient reports she is doing better and has removed the boot. She only reports wearing it when on uneven ground.? ? The patient will finish the remaining three sessions of PT. She is currently out of the boot and has mostly returned to normal activities. She should continue to show progression. However, should she have issues she should contact the office. Follow-up will be PRN, or sooner if needed. ? Patient Instructions: Scribed by Gilma Noriega director biomedical engineering, for Esperanza Chavarria PA-C on 06/24/2024 at 10:34 am, EST.? Coding Level of Care Code Est Pt Level 3 (11179) Diagnoses Rupture of left gastrocnemius tendon, initial encounter S86.112A Encounter type: initial encounter Laterality: left
== END 2024-06-24 10:43 | disposition home or self-care (01) ==
PROVIDERS: PCP Nurse Practitioner Primary Care; Visit Provider Physician Assistant
DX: S86.112A Strain of other muscle(s) and tendon(s) of posterior muscle group at lower leg level, left leg, initial encounter (principal)
CPT/HCPCS: 99213

== ENCOUNTER → 2024-06-24 10:02 | Outpatient (BNVA) | payer MEDICAID, SELFPAY | PROVIDERS: PCP Nurse Practitioner Primary Care; Visit Provider Physician Assistant | DX: S86.012A Strain of left Achilles tendon, initial encounter (principal); W18.09XA Striking against other object with subsequent fall, initial encounter; Y93.F9 Activity, other caregiving; Y92.219 Unspecified school as the place of occurrence of the external cause; Y99.0 Civilian activity done for income or pay | CPT/HCPCS: 99212 ==

== ENCOUNTER 2024-07-07 16:00 | Outpatient (RCR) | payer MEDICAID, SELFPAY ==
--- NOTE | 2024-06-03 14:31 | MHC.PT.EP ---
[facility] [place] Office [place] Office [place] Office [address] Demetrio Sims [address] [phone] F: [phone] F: [phone] F: [phone] F: [phone] Physical Therapy Plan of Care Date of Evaluation: 06/03/24 Date of Surgery: NA Diagnosis: Strain of other muscles and tendons of posterior muscle group at lower leg level Assessment: Humera is a 34 year old female who is referred to PT for Strain of other muscles and tendons of posterior muscle group at lower leg level . She sustained the injury about 3 weeks back while she was running after a kid. She felt a pop when she first pushed off her L foot to stand and run. She was unable to weight bear in L LE after. She went to the ED where fracture as ruled out and she was sent home with pain meds and crutches. She was then give a walking boot 2 days after by ortho. On PT examination she presented with TTP at the proximal 2/3rd and distal 1/3rd junction, around medial malleoli, 6/10 pain in posterior aspect L LE with standing and walking, decreased L ankle ROM, decreased L LE strength, impaired posture, balance and gait. She lives with family but has no help for ADLS. She has a autistic son and has to care for him. She works for a [employer] and is currently placed on light duty- sits at the [employer]. She would benefit from skilled PT to address the aforementioned impairments and improve tolerance to functional activities. Frequency and Duration: The patient will be seen 2/week for 6 weeks Short Term Goals: 1. Pt will be ambulate with 1 crutch and WBAT in 2 weeks. 2. Pt will be able to move ankle through all planes of motion which will enable her to ambulate without a limp in 4 weeks Clinical Rn Manager Goals: 1. Pt will demonstrate an increase in muscle strength by 1 grade which will enable her to negotiate stairs without pain in 6 weeks 2. Pt will be independent with HEP and return to PLOF without limitations in 8 weeks. Treatment Plan: Modalities to reduce pain, spasms and effusion. Manual therapy to restore motion and function. Therapeutic exercise to improve strength and flexibility. Neuromuscular re-education for posture and balance. Therapeutic activities to return to functional activities of daily living. Electronically signed by: Mitzi Lyons PT DPT Please sign and return to therapist. Thank you for your referral.
--- NOTE | 2024-07-16 13:35 | MHC.PT.DC ---
[facility] [place] Office [place] Office [place] Office [address] Demetrio Sims 140 [facility] [phone] F: [phone] F: [phone] F: [phone] F: [phone] Physical Therapy Discharge Report Diagnosis: Strain of other muscles and tendons of posterior muscle group at lower leg level Date of Surgery: NA Date of Evaluation: 06/03/24 Date of Discharge: 07/16/24 Treatments to Date: 7 Cancellations to Date: 0 No Shows to Date: 0 Discharge Status: Achieved Goals Improved Function Independent with HEP Discharge Summary: Humera attended 7 PT visits and achieved all goals set for her. She is therefore being d/c from PT. Electronically signed by: Mitzi Lyons, PT DPT Please sign and return to therapist. Thank you for your referral.
== END 2024-07-16 13:35 | disposition home or self-care (01) ==
LOC: HO.PT 16:00
PROVIDERS: PCP Nurse Practitioner Primary Care; Visit Provider Physician Assistant
DX: S86.112D Strain of other muscle(s) and tendon(s) of posterior muscle group at lower leg level, left leg, subsequent encounter (principal)
CPT/HCPCS: 97035; 97110; 97112; 97161; 97530